=== PATIENT | male | born 1965 | race Caucasian/White ===

== ENCOUNTER 2022-05-12 08:39 | Day surgery (SDC) | payer BC ==
[~2022-05-12 08:39] MED LIST: LACTATED RINGERS 1,000 ML IV SCH
[2022-05-12 09:09] VITALS: TEMP 97.1
[2022-05-12] MEDS ORDERED: MIDAZOLAM 2 MG/2 ML VIAL ONE (10:07)
[2022-05-12] MEDS ORDERED: PROPOFOL 10 MG/ML 20 ML VIAL IV ONE (10:07)
--- NOTE | 2022-05-12 10:36 | P.PCN ---
Date of Procedure: 05/12/22 Procedure(s) Performed: BRIEF HISTORY: Patient is a 57-year-old pleasant white male scheduled for an elective colonoscopy as a part of screening for colon cancer. PROCEDURE PERFORMED: Colonoscopy with snare polypectomy and Endo Clip placement. PREOPERATIVE DIAGNOSIS: Screening for colon cancer. IV sedation per Anesthesia. PROCEDURE: After informed consent was obtained, the patient, was brought into the endoscopy unit. IV sedation was administered by Anesthesia under continuous monitoring. Digital rectal examination was normal. Initially the Olympus CF-160 flexible video colonoscope was then inserted in the rectum, gradually advanced into the cecum without any difficulty. Careful examination was performed as the scope was gradually being withdrawn. Ileocecal valve and the appendiceal orifice were visualized and appeared normal. Prep was excellent. Mucosa of the cecum, ascending colon, transverse colon, descending colon appeared normal. In the sigmoid colon at 35 cm from the anal was there was a 2 cm thick pedunculated polyp that was removed by snare polypectomy. Polyp polypectomy there was some oozing identified and hence 2 endoclips were placed with good hemostasis. Rest of the, sigmoid colon, and rectum appeared normal. Retroflexion was performed in the rectum and no lesions were seen. The patient tolerated the procedure well. IMPRESSION: 2 cm pedunculated sigmoid colon polyp status post polypectomy followed by Endo Clip placement Rest of the colon appeared normal. RECOMMENDATIONS: Findings of this examination were discussed with the patient as well as his family. He was advised to follow with the biopsy result. If the biopsy reveals adenoma he can have a repeat colonoscopy in 3 years..
[2022-05-12 10:43] VITALS: RESP 16
[2022-05-12 10:54] VITALS: BP 104/62; PULSE 68
== END 2022-05-12 11:30 | disposition home or self-care (01) ==
LOC: ORWHC2ENDO 08:39
PROVIDERS: ATTEND Internal Medicine Gastroenterology
DX: Z12.11 Encounter for screening for malignant neoplasm of colon (principal); D12.5 Benign neoplasm of sigmoid colon; E78.5 Hyperlipidemia, unspecified; Z79.899 Other long term (current) drug therapy
CPT/HCPCS: 88305; 45385; J2250; J2704